=== PATIENT | male | born 1975 | race African-American/Black ===

== ENCOUNTER 2022-06-13 20:26 | Emergency (ER) | payer SELFPAY ==
[~2022-06-13] VITALS: Ht 170.2 cm; Wt 65.0 kg
[2022-06-13 20:35] VITALS: BP 146/86
[2022-06-13] MEDS ORDERED: IPRATROPIUM BROMIDE (0.02%) 0.5MG/2.5ML NEB HHN STA (21:03)
[2022-06-13 21:54] LABS: BASOPHILS % 0.5 % (0.0-2.0); EOSINOPHILS % 0.2 % (0.0-5.0); HEMATOCRIT. 43.8 % (42.0-52.0); HEMOGLOBIN. 15.2 g/dL (14.0-18.0); LYMPHOCYTES % 24.4 % (20.0-50.0); MEAN CORPUSCULAR HEMOGLOBIN 30.9 pg (28.0-32.0); MEAN CORPUSCULAR VOLUME 89.1 fL (80.0-94.0); MEAN PLATELET VOLUME 7.7 fl (7.4-10.4); NEUTROPHILS % 66.9 % (40.0-76.0); PLATELET 173 x1000/uL (130-400); RED BLOOD CELL COUNT 4.91 mill/uL (4.7-6.1); RED CELL DISTRIBUTION WIDTH 14.2 % (11.6-14.6)
[2022-06-13 22:05] LABS: CHLORIDE 105 mEq/L (98-107)
[2022-06-13] MEDS: ALBUTEROL (0.083%) 2.5MG/3ML NEB HHN SCH ×3 (22:16→22:35)
[2022-06-13] MEDS ORDERED: IOHEXOL-350 100 ML BOTTLE ONE (23:21)
== END 2022-06-14 00:25 | disposition home or self-care (01) ==
LOC: ER 20:36
DX: R07.89 Other chest pain (principal); F17.200 Nicotine dependence, unspecified, uncomplicated; Z20.822 Contact with and (suspected) exposure to COVID-19
CPT/HCPCS: 36415; 71045; 71275; 80053; 84145; 84484; 85025; 85379; 87426; 93005; 94644; 99285; C9803; Q9967